=== PATIENT | female | born 1980 | race Caucasian/White ===

== ENCOUNTER 2024-03-25 16:24 | Emergency (ER) | payer MEDICAID ==
[~2024-03-25] VITALS: Ht 165.1 cm; Wt 68.5 kg
[2024-03-25 16:32] VITALS: BP 128/90; PULSE 89; RESP 16; TEMP 98.2; O2SAT 100
== END 2024-03-25 17:42 | disposition left against medical advice (07) ==
LOC: ER 16:24
DX: M25.512 Pain in left shoulder (principal); Z53.21 Procedure and treatment not carried out due to patient leaving prior to being seen by health care provider